=== PATIENT | female | born 1990 | race Caucasian/White ===

== ENCOUNTER 2017-06-23 23:47 | Inpatient (IN) | payer BC ==
[~2017-06-23] VITALS: Ht 144.8 cm; Wt 64.4 kg
[2017-06-23] MEDS ORDERED: LR 1,000 ML IV SCH (23:55)
[2017-06-24] MEDS ORDERED: NALBUPHINE HCL 10 MG/ML AMP IVP PRN
[2017-06-24] MEDS ORDERED: MISOPROSTOL 100 MCG TABLET (CYTOTEC) PO PRN
[2017-06-24 00:44] VITALS: BP_SYST 124
[2017-06-24 01:04] LABS: BASOPHILS # (AUTO) 0.1 K/uL (0.0-0.2); BASOPHILS % (AUTO) 0.5 % (0.0-2.0); EOSINOPHILS % (AUTO) 0.3 % (0.0-4.0); HEMATOCRIT 35.8 % (36-48); LYMPHOCYTES # (AUTO) 1.6 K/uL (1.0-5.5); LYMPHOCYTES % (AUTO) 10.8 % (20.5-51.5); MEAN CORPUSCULAR HEMOGLOBIN 31 pg (27-31); MEAN CORPUSCULAR HGB CONC 34 % (32-36); MEAN CORPUSCULAR VOLUME 92 fL (79.0-98.0); MONOCYTES % (AUTO) 6.3 % (1.7-9.3); NEUTROPHILS # (AUTO) 12.4 K/uL (1.8-7.7); NEUTROPHILS % (AUTO) 82.1 % (40.0-70.0); PLATELET COUNT (AUTO) 259 K/uL (130-430); RED CELL DISTRIBUTION WIDTH 13.1 % (9.0-15.0); WHITE BLOOD COUNT (AUTO) 15.1 K/uL (4.8-10.8)
[2017-06-24] MEDS ORDERED: OXYTOCIN/0.9 % SODIUM CHLORIDE 1,000 ML IV SCH (05:10)
[2017-06-24] MEDS ORDERED: ACETAMINOPHEN 325 MG TABLET PO PRN ×2 (05:15→11:15)
[2017-06-24] MEDS ORDERED: AMPICILLIN SODIUM 2 GM VIAL ONE (05:30)
[2017-06-24] MEDS ORDERED: AMPICILLIN SODIUM 2 GM in NS 100 ML IV ONE (05:30)
[2017-06-24] MEDS ORDERED: GENTAMICIN 80 mg/100 mL NS 100 ML IV ONE (05:38)
[2017-06-24] MEDS ORDERED: GENTAMICIN 80 mg/100 mL NS 100 ML IV SCH (06:00)
[2017-06-24] MEDS ORDERED: fentaNYL CITRATE/PF 100 MCG/2 ML AMP ONE ×2 (06:10→06:15)
[2017-06-24] MEDS ORDERED: ROPIVACAINE 0.2% 100 ML ONE (06:15)
[2017-06-24] MEDS ORDERED: LR 500 ML IV ONE (08:11)
[2017-06-24] MEDS ORDERED: FENT2mCg/mL-ROPIVA0.2%/NS EPID 150 ML EP SCH (08:15)
[2017-06-24] MEDS ORDERED: LR 1,000 ML IV ONE (09:23)
[2017-06-24] MEDS ORDERED: CEFAZOLIN 2 GM IVPB PREMIX 50 ML IV ONE ×2 (09:30→09:36)
[2017-06-24] MEDS ORDERED: AMPICILLIN SODIUM 1 GM in NS 50 ML IV SCH (09:30)
[2017-06-24] MEDS ORDERED: MORPHINE SULFATE 10MG/10ML PF AMP EP ONE (09:50)
[2017-06-24] MEDS ORDERED: LR 1,000 ML IV.SOLN IV ONE (09:50)
[2017-06-24] MEDS ORDERED: ONDANSETRON HCL 4 MG/2 ML VIAL IVP ONE (09:50)
[2017-06-24] MEDS ORDERED: NS IRRIG SOLN 1000 ML IR ONE (09:50)
[2017-06-24] MEDS ORDERED: LIDOCAINE 2%, 20 ML MDV INJ ONE (09:50)
[2017-06-24] MEDS ORDERED: OXYTOCIN 10 UNIT/ML VIAL IV ONE (09:50)
[2017-06-24] MEDS ORDERED: LR 1,000 ML IV SCH (10:14)
[2017-06-24] MEDS ORDERED: NALOXONE HCL 0.4 MG/ML AMP (NARCAN) IVP PRN (10:15)
[2017-06-24] MEDS ORDERED: KETOROLAC TROMETHAMINE 60 MG/2 ML VIAL IM PRN (10:15)
[2017-06-24] MEDS ORDERED: ONDANSETRON HCL 4 MG/2 ML VIAL IVP PRN (10:15)
[2017-06-24] MEDS ORDERED: METOCLOPRAMIDE HCL 10 MG/2 ML VIAL IVP PRN (10:15)
[2017-06-24] MEDS ORDERED: MORPHINE SULFATE 10MG/10ML PF AMP EP SCH (10:15)
[2017-06-24] MEDS ORDERED: MORPHINE 4 MG/ML INJ. SYRINGE IVP PRN ×3 (10:15)
[2017-06-24] MEDS ORDERED: DIPHENHYDRAMINE INJ 50 MG/ML VIAL IM PRN (10:15)
[2017-06-24] MEDS ORDERED: OXYTOCIN/0.9 % SODIUM CHLORIDE 1,000 ML IV ONE ×2 (11:13→12:11)
[2017-06-24] MEDS ORDERED: OXYCODONE/ACETAMINOPHEN 5-325 TABLET PO PRN ×2 (11:15)
[2017-06-24] MEDS ORDERED: MEASLES,MUMPS&RUBELLA VACC/PF 12500 UNIT/0.5 ML VIAL SUBQ PRN (11:15)
[2017-06-24] MEDS ORDERED: LANOLIN 7 GM OINT. TP PRN (11:15)
[2017-06-24] MEDS ORDERED: SENNOSIDES/DOCUSATE SODIUM 1 TAB TABLET(SENOKOT-S) PO PRN (11:15)
[2017-06-24] MEDS ORDERED: DOCUSATE SODIUM 100 MG CAPSULE PO PRN (11:15)
[2017-06-24] MEDS ORDERED: BISACODYL 10 MG/SUPPOSITORY RC PRN (11:15)
[2017-06-24] MEDS ORDERED: ANUSOL 1 EA SUPP.RECT (PREPARATION H) RC PRN (11:15)
[2017-06-24] MEDS ORDERED: RHO(D) IMMUNE GLOBULIN/MALTOSE 1500 UNITS/1.3 ML (WINHRO) IM PRN (11:15)
[2017-06-24] MEDS ORDERED: SIMETHICONE 80 MG TAB.CHEW PO PRN (11:15)
[2017-06-24] MEDS ORDERED: DIPH-TET-PERTUS Vaccine 0.5 ML VIAL (ADACEL) I.M. PRN (11:15)
[2017-06-24 11:38] VITALS: BP_SYST 118
[2017-06-24] MEDS: LR 1,000 ML IV SCH ×2 (19:13→21:00)
[2017-06-24] MEDS ORDERED: TEMAZEPAM 15 MG CAPSULE PO PRN (21:00)
[2017-06-24] MEDS: CEFAZOLIN 1 GM IVPB PREMIX 50 ML IV SCH (22:00)
[2017-06-25] MEDS: CEFAZOLIN 1 GM IVPB PREMIX 50 ML IV SCH (04:00)
[2017-06-25] MEDS: IBUPROFEN 600 MG TABLET PO SCH ×4 (06:34→17:51)
[2017-06-25 06:56] LABS: EOSINOPHILS % (AUTO) 0.2 % (0.0-4.0); HEMATOCRIT 24.2 % (36-48); HEMOGLOBIN 8.3 g/dL (12.0-16.0); LYMPHOCYTES # (AUTO) 1.7 K/uL (1.0-5.5); LYMPHOCYTES % (AUTO) 8.9 % (20.5-51.5); MEAN CORPUSCULAR HEMOGLOBIN 31 pg (27-31); MEAN CORPUSCULAR HGB CONC 34 % (32-36); MEAN CORPUSCULAR VOLUME 92 fL (79.0-98.0); MONOCYTES # (AUTO) 1.2 K/uL (0.0-1.0); NEUTROPHILS # (AUTO) 16.3 K/uL (1.8-7.7); NEUTROPHILS % (AUTO) 84.9 % (40.0-70.0); PLATELET COUNT (AUTO) 214 K/uL (130-430); RED BLOOD CELL COUNT(AUTO) 2.64 MIL/uL (4.2-6.2); RED CELL DISTRIBUTION WIDTH 12.9 % (9.0-15.0)
[2017-06-25 07:02] LABS: WHITE BLOOD COUNT (AUTO) 19.2 K/uL (4.8-10.8)
[2017-06-26] MEDS: IBUPROFEN 600 MG TABLET PO SCH ×3 (06:10→11:46)
[2017-06-26] MEDS ORDERED: BUPIVACAINE /PF 0.5% 30 ML VIAL INJ ONE (11:04)
== END 2017-06-26 14:05 | disposition home or self-care (01) | DRG 765 ==
LOC: SPU 23:47
PROVIDERS: ADMIT Obstetrics & Gynecology; ATTEND Obstetrics & Gynecology
PROC: 10D00Z1 Extraction of Products of Conception, Low, Open Approach (ICD-10-PCS; principal; 2017-06-24 10:00)
DX: O41.1230 Chorioamnionitis, third trimester, not applicable or unspecified (principal); O75.2 Pyrexia during labor, not elsewhere classified; O69.81X0 Labor and delivery complicated by cord around neck, without compression, not applicable or unspecified; O77.0 Labor and delivery complicated by meconium in amniotic fluid; O76 Abnormality in fetal heart rate and rhythm complicating labor and delivery; Z37.0 Single live birth; Z3A.39 39 weeks gestation of pregnancy
CPT/HCPCS: 36415; 85025; 86592; 86886; 86900; 86901; 94760; J0290; J0690; J1580; J2001; J2274; J2405; J2590; J2795; J3010; J3490; J7120